=== PATIENT | female | born 1980 | race Caucasian/White ===

== ENCOUNTER 2019-06-26 14:11 | Inpatient (IN) | payer BC ==
[2019-06-26] MEDS ORDERED: Lactated Ringers 1000 ML Bag* 1,000 ML IV ONE (18:05)
[2019-06-26] MEDS ORDERED: Buffered Lidocaine 1% SYRIN* 1 ML/SYRINGE INTRADERM ONE (18:05)
[2019-06-26] MEDS ORDERED: Lactated Ringers 1000 ML Bag* 1,000 ML IV SCH (19:00)
[2019-06-26] MEDS ORDERED: Misoprostol TAB* 100 MCG PO SCH (19:00)
--- NOTE | 2019-06-26 19:07 | HP ---
General Information - Reason for Visit 39yo, , IUP@39+2 here for IOL for preeclampsia - General Information Maternal Age: 39 Grav: 1 Para: 0 SAB: 0 IEA: 0 Estimated Due Date: 07/01/19 Determined By: LMP Gestational Age in Weeks/Days: 39+2 Maternal Blood Type and Rh: O Positive - Results this Serology/RPR Result: Non-Reactive Rubella Result: Non-Immune HBsAg Result: Negative HIV Result: Negative GBS Culture Result: Negative Past Medical History Pertinent Past Medical History: Non-Contributory Past Surgical History Comment: wisdom tooth extraction Family History Comment: Father: kidney stones Mother: breast cancer, remission Brother: club foot PGF: [place] MGM: diabetes MGF: brain cancer - Antepartal Records Antepartal Records: Reviewed, Complicated by: - AMA (age 38); rubella equivocal Review of Systems Constitutional: Comfortable CV Complaint: No Respiratory: Shortness of Breath: No Gastrointestinal: No Nausea/Vomiting, Normal Bowel Movement Genitourinary: Leaking Fluid, No Dysuria, No Bleeding Musculoskeletal: Contractions - occasional contraction Neurological: No Headache, No Visual Changes Movement: Normal Exam Temp 99.8, 141/95, HR 65, RR 20, O2 Sat 100% - Measurements Height: 5 ft 2 in Weight: 158 lb 8 oz Weight in lbs: 158.336646 Body Mass Index (BMI): 29.0 Pre- Weight: 125 lb Weight Gained This : 33.5 lbs and 0 ozs - Exam Breast: Breast Exam Deferred CVA: No CVA Tenderness Extremities: No Edema Heart: Normal Rhythm/Heart Sounds HEENT: No Significant Findings Lungs: Clear Bilaterally Rectal: Rectal Exam Deferred Reflexes: DTR 2+ - Abdominal Exam Abdomen Exam: Non-Tender - Ultrasound/Biophysical Profile Ultrasound Status: Not Done Targeted Exam Findings Estimated Weight: 7.5lbs Presenting Part: Vertex Membrane Status: SROM - thin meconium Amniotic Fluid Evaluation: Gross Rupture Bleeding/Discharge: None EFM Findings - External Monitor Findings Baseline Heart Rate: 130 External Monitor Findings: Accelerations Present, No Pattern of Variable or Late Decelerations, Variability Moderate, Baseline Stable External Monitor Findings Comment: No evidence of metabolic acidemia Contractions: Irregular, Mild, 45-90 Seconds Assessment/Plan - Assessment IUP@39+2 PROM@0415 was clear - now yellow tint Elevated BP; denies GARCES, vision changes, RUQ pain No evidence of metabolic acidemia Occasional contraction - Plan Plan Comment: Admit to L&D PARQ discussion about IOL vs expectant management Recommend IOL, but family strongly desires expectant management Consulted with LMB given elevated BP and thin mec - reasonable for expectant management at this time Will repeat BP in 4 hours and consider labs if BPs elevated
[2019-06-26 19:08] LABS: ABS Basophils 0.1 10^3/ul (0-0.2); ABS Monocytes 0.6 10^3/ul (0-0.8); ABS Neutrophils 6.4 10^3/ul (1.5-7.7); Eosinophil % 0.5 %; Hematocrit 41 % (35-47); Hemoglobin 14.2 g/dL (12.0-16.0); Lymphocyte % 22.3 %; Mean Corpuscular HGB Conc 35 g/dL (31-36); Mean Corpuscular Hemoglobin 32 pg (27-31); Mean Corpuscular Volume 91 fL (80-97); Mean Platelet Volume 9.9 fL (7.4-10.4); Nucleated Red Blood Cells % 0.1; Platelet Count 243 10^3/uL (150-450); Red Blood Count 4.48 10^6 /uL (3.70-4.87); Red Cell Distribution Width 14 % (10-15); White Blood Count 9.1 10^3/uL (3.5-10.8)
[2019-06-26 19:11] LABS: Urine Appearance Clear; Urine Bilirubin Negative (Negative); Urine Blood Negative (Negative); Urine Color Yellow; Urine Glucose Negative (Negative); Urine Ketones Negative (Negative); Urine Nitrite Negative (Negative); Urine Protein 1+(30 mg/dL) (Negative); Urine Specific Gravity 1.011 (1.010-1.030); Urine Urobilinogen Negative (Negative)
[2019-06-26 19:18] LABS: Urine Bacteria Absent (Absent); Urine Red Blood Cell Trace(0-2/hpf) (Absent); Urine Squamous Epithelial Cell Present (Absent); Urine White Blood Cell Trace(0-5/hpf) (Absent)
[2019-06-26 19:19] LABS: Albumin 3.1 g/dL (3.2-5.2); BUN/Creatinine Ratio 17.3 (8-20); Calcium 8.7 mg/dL (8.6-10.3); EGFR African American 95.7 (>60); EGFR Non-African American 79.1 (>60); Globulin 3.2 g/dL (2-4); Potassium 3.8 mmol/L (3.5-5.0); Total Bilirubin 0.7 mg/dL (0.2-1.0); Total Protein 6.3 g/dL (6.4-8.9); Uric Acid 6.3 mg/dL (2.3-6.6)
[2019-06-26 19:24] LABS: Urine Benzodiazepine Screen None Detected (None Detect); Urine Opiates Screen None Detected (None Detect)
--- NOTE | 2019-06-26 20:03 | PN ---
Progress Note - Progress Note Date of Service: 06/26/19 Note: S: Pt doing well. Feeling contractions every 5 minutes or so. Becoming more painful. Denies GARCES, vision changes, RUQ pain, edema. O: BP 150/90, HR 62, temp 99.6 AST/ALT 37/42, platelets 243, UA 6.3, +1 protein FHR: 135, +accels, no decels Contractions: 6 mins, palpate moderate, good resting tone VE: deferred A: PROM, thin mec, temp unchanged since arrival BP elevated; CBC/CMP, UA WNL; +1 protein; GHTN vs PEC No evidence of metabolic acidemia Contractions becoming more regular P: Proceed with labor augmentation via misoprostol; pt and in agreement with plan Discussed option for therapeutic rest/epidural if desired prn Anticipate progression to active labor
[2019-06-26] MEDS ORDERED: Morphine INJ* 4 MG/ML 1 ML SYRINGE (NEW SYRINGE VERSION) IV PRN (21:29)
[2019-06-26] MEDS ORDERED: Promethazine INJ(RESTRICTED)* 25 MG/ML 1 ML VIAL IV ONE (22:00)
[2019-06-27] MEDS ORDERED: OBEPIDURAL* 250 ML EPIDURAL ONE (06:36)
--- NOTE | 2019-06-27 06:40 | PN ---
Progress Note - Progress Note Date of Service: 06/27/19 Note: S: Pt is now out of tub. Breathing and moaning through contractions. Requesting an epidural. Denies GARCES, new onset RUQ pain/edema, vision changes. at bedside, supportive O: 154/92, temp 97.6, RR18 FHR: 140, moderate variability Contractions: q2-3 mins, palpate strong, good resting tone VE: 6/100/0, +bloody show Mec stained fluid A: IUP@39+3 with PROM now in active labor Afebrile Elevated BPs, pt asymptomatic No evidence of metabolic acidemia P: Epidural now Anesthesia aware Anticipate progression to complete and Report given to Jefry Narvaez CNM who will assume care of the patient at 0800.
[2019-06-27] MEDS ORDERED: Famotidine TAB* 20 MG PO PRN (07:50)
[2019-06-27] MEDS ORDERED: Lactated Ringers 1000 ML Bag* 1,000 ML IV ONE (07:50)
[2019-06-27] MEDS ORDERED: Sodium Citrate/Citric Acid* 15 ML UDC PO PRN (07:50)
[2019-06-27] MEDS ORDERED: Phenylephrine 40 MCG/ML SYRINGE IV PUSH PRN ×2 (07:50)
[2019-06-27] MEDS ORDERED: OBEPIDURAL* 250 ML EPIDURAL SCH (08:00)
[2019-06-27] MEDS ORDERED: Lactated Ringers 1000 ML Bag* 1,000 ML IV SCH ×2 (08:00→11:00)
--- NOTE | 2019-06-27 08:31 | PN ---
Progress Note - Progress Note Date of Service: 06/27/19 Note: Assuming care of Arabella. She is comfortable s/p CEI placement O: VSS, afebrile FHT 155bpm. Moderate variability. Deep variable decels with UCs to 90bpm. Recover UCs q 2-5 VE ant lip/100%/vtx 0 A: IUP at 39-4/7 in labor Cat II FHT P: Maternal position changes, close monitoring of status, O2 by mask, IV fluids. Anticipate trial of pushing shortly. Dr. Arciniega in house and aware of pt presence and condition
[2019-06-27] MEDS ORDERED: Oxytocin in LR* 20 UNITS/1,000 ML BAG IVPB ONE (09:28)
[2019-06-27] MEDS ORDERED: Dibucaine 1% 28.35 GM TUBE PR PRN (10:13)
[2019-06-27] MEDS ORDERED: Measles, Mumps,Rubella VACC* 0.5 ML/VIAL SUBCUT ONE (10:13)
--- NOTE | 2019-06-27 10:24 | PROCNOTE ---
[facility] OB: Delivery Note - Delivery A Date of : 06/27/19 Time of : 09:35 Lexa Sex: Female - "Ladi Amador" Lexa Weight at : 5 lb 4 oz Score 1 Minute: 8 Score 5 Minutes: 9 Gestational Age in Weeks and Days at Delivery: 39 Weeks and 3 Days Delivery Method: Spontaneous Vaginal Labor: Spontaneous Did Patient attempt ?: N/A, No Previous Amniotic Fluid: Meconium Estimated Blood Loss: 500 Anesthesia/Analgesia: CEI for Labor Delivered By: Sangeeta Narvaez - Nursery Level of Nursery: Regular/Bedside - Perineum Perineal Injury: Abrasion Only - Not Repaired - Left sublabial. Hemostatic and not repaired. Small abrasiona at introitus. Hemostatic and not repaired Perineal Repair: None - Events Delivery Events of Note: Pitocin Only After Delivery, Supplemental O2 to Mother , Post- Bleeding - Meds Given - Additional Delivery Notes Additional Delivery Notes: Arabella was admitted s/p ruptured membranes to meconium stained fluid with expected progression into active labor. Gestational hypertension diagnosed in labor. Received an epidural with excellent relief at 6cm which led to rapid progression in labor to complete in 2 hours. Deep variable decels noted after epidural placement with rapid return to baseline. O2 by mask, IV fluids and frequent maternal position changes as well as rapid progression in labor meant that expectant management still appropriate. Dr. Arciniega aware of tracing an in house. Length of active phase 6 hours, 40 min. Pushed x 55 min. liveborn female. Slow, controlled delivery of head. OA to RAYMUNDO. Shoulders followed easily. Tight nuchal cord x 1. somersaulted through. vigorous with spontaneous cry. HR>110bpm. Delivered to maternal abdomen. Cord clamped x 2 and cut by FOB when pulsations ceased. Apgars 8/9. Spontaneous delivery intact , bi-lobed placenta. Membranes complete. Fundus firm to massage with IV pitocin infusing. Perineum intact. No repair needed as above. When moving mother to clean her after delivery large gush of bleeding noted. Fundus slow to firm with massage. 800mcg Cytotec given per rectum x 1. Fundus firm to massage and remained firm. EBL 500mL. At time of note mother and in stable condition. Breast feeding initiated.
[2019-06-27] MEDS ORDERED: Oxytocin in LR* 20 UNITS/1,000 ML BAG IVPB SCH (11:00)
[2019-06-27] MEDS: Ibuprofen TAB* 600 MG PO SCH ×2 (12:07→20:02)
[2019-06-27] MEDS: Witch Hazel PAD* JAR TOPICAL PRN (12:08)
[2019-06-27] MEDS: Docusate CAP* 100 MG PO SCH ×2 (14:35→20:02)
[2019-06-27] MEDS ORDERED: Misoprostol TAB* 100 MCG ONE ×2 (15:00→15:05)
[2019-06-27] MEDS: Acetaminophen TAB* 325 MG PO PRN (23:59)
[2019-06-28] MEDS: Ibuprofen TAB* 600 MG PO SCH ×5 (02:40→21:20)
[2019-06-28 05:20] LABS: ABS Basophils 0.1 10^3/ul (0-0.2); ABS Eosinophils 0.1 10^3/ul (0-0.6); ABS Neutrophils 9.7 10^3/ul (1.5-7.7); Eosinophil % 0.9 %; Hematocrit 31 % (35-47); Hemoglobin 10.7 g/dL (12.0-16.0); Lymphocyte % 21.7 %; Mean Corpuscular HGB Conc 35 g/dL (31-36); Mean Corpuscular Hemoglobin 32 pg (27-31); Mean Corpuscular Volume 92 fL (80-97); Mean Platelet Volume 8.6 fL (7.4-10.4); Nucleated Red Blood Cells % 0.1; Platelet Count 196 10^3/uL (150-450); Red Blood Count 3.34 10^6 /uL (3.70-4.87); Red Cell Distribution Width 14 % (10-15); White Blood Count 13.8 10^3/uL (3.5-10.8)
[2019-06-28] MEDS: Acetaminophen TAB* 325 MG PO PRN (05:20)
[2019-06-28] MEDS: Docusate CAP* 100 MG PO SCH ×4 (08:26→21:07)
[2019-06-28] MEDS ORDERED: Ferrous Gluconate TAB* 324 MG TAB PO SCH (09:00)
--- NOTE | 2019-06-28 18:24 | PTEDU ---
Patient Name: PATRICIA MORFIN PATRICIA MORFIN selected video: Follow Me Mum: [employer] [place] to view on 06/27 at 6:23:34 PM from [email or web address]
--- NOTE | 2019-06-28 19:59 | PTEDU ---
Patient Name: PATRICIA MORFIN PATRICIA MORFIN selected video: Follow Me Mum: [employer] [place] [employer] to view on 06/27 at 7:59:35 PM from [email or web address]
[2019-06-28] MEDS: Witch Hazel PAD* JAR TOPICAL PRN (21:21)
[2019-06-29] MEDS: Ibuprofen TAB* 600 MG PO SCH ×2 (03:48→11:50)
[2019-06-29 08:10] VITALS: BP 129/80
[2019-06-29] MEDS: Acetaminophen TAB* 325 MG PO PRN (08:37)
[2019-06-29] MEDS: Docusate CAP* 100 MG PO SCH (08:37)
== END 2019-06-29 13:53 | disposition home or self-care (01) | DRG 560 ==
LOC: MCHOBOUT 14:11 → MCHOB 17:20
PROVIDERS: ADMIT Advanced Practice Midwife; ATTEND Midwife
PROC: 10E0XZZ Delivery of Products of Conception, External Approach (ICD-10-PCS; principal; 2019-06-27)
DX: O14.94 Unspecified pre-eclampsia, complicating childbirth (principal); Z37.0 Single live birth; O77.0 Labor and delivery complicated by meconium in amniotic fluid; O69.81X0 Labor and delivery complicated by cord around neck, without compression, not applicable or unspecified; O70.0 First degree perineal laceration during delivery; O72.1 Other immediate postpartum hemorrhage; Z3A.39 39 weeks gestation of pregnancy
CPT/HCPCS: 36415; 80053; 80307; 81003; 81015; 84550; 85025; 86850; 86900; 86901; 87086; A9270-GY; G0480; J2270; J2550; S0191